=== PATIENT | female | born 1990 | race Two or more races ===

== ENCOUNTER 2017-04-19 12:51 | Emergency (ER) | payer OTHER ==
[~2017-04-19] VITALS: Ht 157.5 cm; Wt 76.7 kg
[2017-04-19 13:11] VITALS: Ht 157.5 cm; Wt 76.7 kg
[2017-04-19 15:00] LABS: BASOPHIL % 0.7 % (0-2); PLATELET COUNT 352 x10^3mcL (130-400)
[2017-04-19 15:17] LABS: FREE T4 1.1 ng/dL (0.76-1.46); FREE THYROXINE INDEX 3.2 ug/dL (1.4-4.5); T4(THYROXINE) 11.4 ug/dL (4.7-13.3)
[2017-04-19 15:25] LABS: CARBON DIOXIDE 24.6 mmol/L (21-32); CHLORIDE SERUM 108 mmol/L (98-107); CREATININE SERUM 0.6 mg/dL (0.6-1.0); GFR1 > 60 mL/min; GLUCOSE SERUM 157 mg/dL (74-106); POTASSIUM SERUM 3.6 mmol/L (3.5-5.1); SODIUM SERUM 141 mmol/L (136-145)
[2017-04-19 15:29] LABS: ALKALINE PHOSPHATASE 63 U/L (46-116); ALT/SGPT 13 U/L (14-59); AST/SGOT 16 U/L (15-37); BILIRUBIN TOTAL 0.17 mg/dL (0.20-1.00); CHOLESTEROL 165 mg/dL (<200); CHOLESTEROL/HDL RATIO 2.8; HDL CHOLESTEROL 60 mg/dL (40-60); LIPASE 107 IU/L (73-393); TOTAL PROTEIN, SERUM 6.8 g/dL (6.4-8.2); TRIGLYCERIDES 98 mg/dL (<150)
[2017-04-19 15:32] LABS: ALBUMIN 2.8 g/dL (3.4-5.0)
[2017-04-19 15:44] LABS: T3 TOTAL 1.92 ng/mL
[2017-04-19 16:21] VITALS: BP 118/71
== END 2017-04-19 16:21 | disposition home or self-care (01) ==
LOC: ED 12:51
PROVIDERS: Specialist
DX: J45.901 Unspecified asthma with (acute) exacerbation (principal); G43.909 Migraine, unspecified, not intractable, without status migrainosus
CPT/HCPCS: 36600; 83880; 84439; J0171; J2930; J3475; J7613; J7644; Q0092; Q0162